=== PATIENT | male | born 1990 | race Caucasian/White ===

== ENCOUNTER 2020-06-05 12:42 | Emergency (ER) | payer OTHER, SELFPAY ==
[2020-06-05 12:44] VITALS: BP 177/111; PULSE 108; RESP 18; TEMP 36.3; O2SAT 100; BMI 35.7
--- NOTE | 2020-06-05 13:29 | EKG12_ITS ---
Test Reason : PALPS Blood Pressure : / mmHG Vent. Rate : 104 BPM Atrial Rate : 104 BPM P-R Int : 158 ms QRS Dur : 090 ms QT Int : 348 ms P-R-T Axes : 037 -29 023 degrees QTc Int : 457 ms Sinus tachycardia Otherwise normal ECG Confirmed by ANUPAM CAMPBELL, TONIA ([id number]), social media editor BELÉN SALAZAR ([id number]) on 06/09/2020 9:54:32 AM Referred By: ALYSE/TEETEE Confirmed By:LIVAN BO MD
--- NOTE | 2020-06-05 13:30 | ED.VIS.GEN ---
History of Present Illness Chief Complaint: Chest Other Informant: Patient Onset: Days - 3 Context: Gradual Onset Timing: Intermittent Quality: See below Current Severity: - - Gone Maximum Severity: Moderate Worsened by: Lying supine Relieved by: Sitting up Narrative: Patient states last 3 days when lying supine he gets some vague discomfort in his left upper extremity that feels like targeted pressure. He denies getting any chest discomfort or trouble breathing or pleuritic symptoms. Today for most of the day, fairly consistent although the discomfort is gone now, he was having a rhythmic thumping in his left neck that almost felt muscular. He has a history of hypertension and ran out of blood pressure medication remotely when he moved back to this area from [place]. Also a strong family history of heart problems at young ages. With this combination of things, he presents for evaluation to make sure his heart is okay. Prior similar symptoms: No Recent Illness/Hospitalization: No - No recent long travel, immobilization, hospitalization, surgery - Past Medical History (1) Hypertension Status: Chronic Past Medical History - Allergies and Home Meds Allergies/Adverse Reactions: Allergies shellfish derived Adverse Reaction (Verified 06/05/20 12:44) Shortness of breath Primary Care Physician: Joaquim Miles MD [Primary Care Provider] - Review of Systems General: Denies: Chills, Fever, Sweats Eyes: Denies: Visual changes - bilaterally, Diplopia ENT: Denies: Rhinorrhea, Sore throat Cardiovascular: Denies: Chest pain, Palpitations Respiratory: Denies: Dyspnea, Cough, Dyspnea on exertion Gastrointestinal: Denies: Abdominal pain, Nausea, Vomiting, Diarrhea, Melena, Hematochezia Genitourinary: Denies: Dysuria, Hematuria, Frequency Musculoskeletal: Reports: Neck pain, Extremity Pain. Denies: Back pain Skin: Denies: Rash, Wounds Neurological: Denies: Headache, Weakness, Numbness Physical Exam Vital Signs/Narrative: Vital Signs Temp Pulse Resp BP Pulse Ox 06/05/20 12:44 97.3 F L 108 H 18 177/111 H 100 Inital Vital Signs reviewed: Yes General: Well nourished, Well developed, No Acute Distress - Well-appearing in no distress Head: Normocephalic, Atraumatic Eyes: Perrl, EOMI ENT: Moist mucous membranes, No rhinorrhea Neck: Supple, Nontender, No lymphadenopathy, No JVD Cardiovascular: Regular rate, Regular rhythm, No murmurs. Negative for: Tachycardia Respiratory: No distress, CTA bilaterally, Chest nontender Abdomen: Soft, Nontender, Nondistended, Normal bowel sounds Back: Nontender, Normal Inspection Extremities: Nontender, No edema. Negative for: Calf Tenderness Skin: Normal color, No rash, No Trauma Neurological: Alert, Oriented x3, Cranial nerves II-XII grossly intact, Normal Strength, Normal Sensation, Normal Gait Psychological: Normal affect, Normal Mood Diagnostic/Tx/Re-eval Laboratory Results 06/05/20 06/05/20 12:55 12:55 WBC 6.1 RBC 5.69 Hgb 16.6 H Hct 48.4 MCV 85.1 MCH 29.2 MCHC 34.3 RDW Std Deviation 38.1 RDW Coeff of Gayla 12.5 Plt Count 207 MPV 10.7 Immature Gran % (Auto) 0.200 Neut % (Auto) 69.7 Lymph % (Auto) 20.2 Whitley % (Auto) 8.1 Eos % (Auto) 1.3 Baso % (Auto) 0.5 Absolute Neuts (auto) 4.2 Absolute Lymphs (auto) 1.23 Nucleated RBC % 0 Sodium 136 Potassium 3.7 Chloride 104 Carbon Dioxide 25.0 Anion Gap 7 BUN 16 Creatinine 1.22 Estim Creat Clear Calc 99.15 Est GFR (MDRD) Af Amer 89 Est GFR (MDRD) Non-Af 73 BUN/Creatinine Ratio 13.1 Glucose 93 Calcium 9.6 Troponin I < 0.015 - Rhythm Strip Rhythm Strip: Sinus Rhythm Rate: 100 Ectopy: None - EKG Initial EKG Interpretation: Sinus Rhythm, No Acute Injury Pattern - Normal EKG - Medical Decision Making Patient heart score is 2, only for having a family history and hypertension. His PETE risk score is 0. Prior to any treatment, his blood pressure is 147/100 and does not require emergent treatment. His work-up is unremarkable with negative enzymes. I am comfortable letting him go home, with close outpatient follow-up. He thinks the medicine he used to be on was lisinopril so I will place him on 10 mg daily until he follows up, in addition to a PPI to see if that helps, as his atypical chest/arm symptoms sound possibly GI in etiology. He is comfortable with that plan. ED Disposition - Plan for ED Patient: Disposition: Home or Assisted Living Diagnosis: Left arm pain, Hypertension Instructions: ED Pain, Acute, Uncertain Cause, ED Hypertension, Established Prescriptions: Lisinopril 10 mg PO DAILY #30 tab Transmission Status: Pending to [facility]/pharmacy #[id number] Pantoprazole Sodium [Protonix] 40 mg PO DAILY #30 tab Transmission Status: Pending to [facility]/pharmacy #[id number] Referrals: Joaquim Miles MD [Primary Care Provider] - Keep [facility] appointment
[2020-06-05 13:37] LABS: Absolute Lymphocyte Count 1.23 X10^3/uL (0.83-4.51); Absolute Neutrophil Count 4.2 X10^3/uL (2.0-7.7); Basophil# 0.03 X10^3/uL; Basophil% 0.5 % (0-1); Eosinophil# 0.08 X10^3/uL; Eosinophils% 1.3 % (0-5); Hematocrit 48.4 % (40-54); Hemoglobin 16.6 g/dL (13.0-16.5); Lymphocyte # 1.23 X10^3/ul (4.0); Lymphocyte % 20.2 % (19-41); Mean Corp Hgb Conc 34.3 g/dL (32-36); Mean Corpuscular Hgb 29.2 pg (27.0-32.0); Mean Corpuscular Volume 85.1 fL (80-94); Mean Platelet Vol. 10.7 fl (6.2-12.0); Monocyte# 0.49 X10^3/uL; Monocyte% 8.1 % (0-10); NRBC Flagged by Analyzer 0 % (0-5); Neutrophil # 4.24 X10^3/uL (2.7-7.7); Neutrophil % 69.7 % (47-70); Platelet Count 207 K/mm3 (150-450); RBC Distribution Width CV 12.5 % (11.6-14.6); RBC Distribution Width SD 38.1 fl (35.1-43.9); Red Blood Count 5.69 M/mm3 (4.6-6.2); White Blood Count 6.1 K/mm3 (4.4-11.0)
--- NOTE | 2020-06-05 13:40 | NURSING ---
NO OLD EKGS
[2020-06-05 13:53] LABS: Anion Gap 7 (5-15); BUN 16 mg/dL (7-18); BUN/Creat Ratio 13.1 RATIO (10-20); Calcium,Total 9.6 mg/dL (8.5-10.1); Chloride 104 mmol/L (98-107); Creatinine, Serum 1.22 mg/dL (0.70-1.30); EST Glomerular Filtration Rate 73 mL/min (>60); Est Glom Filt Rate - Afr Amer 89 mL/min (>60); Estimated Creatinine Clearance 99.15 ml/min; Glucose 93 mg/dL (74-106); Potassium 3.7 mmol/L (3.5-5.1); Sodium Level 136 mmol/L (136-145)
[2020-06-05] MEDS: Pantoprazole Sodium 40 MG Tablet PO (13:54)
[2020-06-05 14:58] VITALS: BP 145/100; PULSE 80
== END 2020-06-05 14:59 | disposition home or self-care (01) ==
PROVIDERS: Emergency Provider Emergency Medicine; PCP Family Medicine
DX: M79.602 Pain in left arm (principal); I10 Essential (primary) hypertension; Z79.899 Other long term (current) drug therapy
CPT/HCPCS: 80048; 84484; 85025; 93005; 99285; A4216